=== PATIENT | female | born 1960 | race Caucasian/White ===

== ENCOUNTER → 2016-09-04 | Outpatient (CLI) | payer OTHER ==
--- NOTE | 2016-09-04 21:42 | CONS ---
DATE: 09/04/2016 CONSULTATION/NEW PATIENT EVALUATION HISTORY OF PRESENT ILLNESS/SLEEP-WAKE EVALUATION: A 56-year-old lady who has been evaluated in the sleep center for snoring and possible obstructive sleep apnea-hypopnea syndrome. SLEEP SCHEDULE: The patient's usual sleep schedule from around 10:00 p.m. until 5:00 a.m. FALLING ASLEEP: No problem falling asleep. She has TV set in bedroom and sometimes watches. DURING SLEEP: She usually sleeps on the side position. Sometimes wake up from sleep. The necessity to go to the bathroom with nocturia. She has loud snoring, hot flashes during sleep. DURING THE DAY/WAKE STATE: During the day, she may feel some day and sleepiness. [place] Sleepiness Scale is 7. She drives motorcycle and car. During the day, she drinks 1 cup of 8 ounces caffeinated beverages. No history of hypnagogic hallucinations, sleep paralysis or cataplexy. PAST MEDICAL HISTORY: Positive for recent hot flashes, history of carpal time syndrome. PAST SURGICAL HISTORY: Surgery for carpal tunnel syndrome on both arms. SOCIAL HISTORY: Smoking in the past; quit 14 years ago. Alcohol consumption occasionally. MEDICATIONS: Effexor taken for hot flashes. No history of depression. FAMILY HISTORY: Hypertension, heart problems, hyperlipidemia, arthritis, asthma, sinus headaches, acid reflux, snoring. PHYSICAL EXAMINATION: GENERAL: lady without distress. BP 140/83, HR 80, RR 16. Height 5 feet 3-1/2 inches. Weight 163. BMI 28.4. Neck 13-3/4 inches in circumference. Temperature 98.0. Oxygen saturation at room air 99%. HEENT: PERRLA, EOMI. Evaluation of oropharynx showed tongue protrudes midline. Extremely low position of soft palate. Some restriction of nasal breathing. NECK: Supple. No JVD. Thyroid is not palpable. LUNGS: Clear to percussion and to auscultation. Good air exchange. No wheezing or rhonchi. HEART: S1, S2 regular. No murmurs, gallops or rubs. ABDOMEN: Soft and nontender. Bowel sounds are present. No organomegaly appreciated. EXTREMITIES: No clubbing or cyanosis. SALES VICE PRESIDENT: Awake, alert, and oriented x3. Cranial nerves 2 to 7 intact. There is no fasciculation or atrophy noted. No focal deficits observed. IMPRESSION: 1. Snoring, extremely low position of soft palate, awakenings from sleep with nocturia, sometimes tiredness and sleepiness during the day, possible obstructive sleep apnea-hypopnea syndrome. 2. Menopause. 3. Hot flashes. 4. Status post surgery for carpal tunnel syndrome bilaterally. 5. History of smoking in the past. PLAN: 1. Polysomnography for evaluation of patient's breathing during sleep. 2. CPAP/BiPAP titration if sleep study confirms obstructive sleep apnea-hypopnea syndrome. 3. Preferable position during sleep on the side. 4. No driving if patient feels any sleepiness. Patient is aware of civil and criminal liability for unsafe driving. 5. I will see patient for follow-up visit to explain results of the testing and following plan. Thank you very much for referring this patient for consultation. Sincerely, Jordi Burkett MD, PhD, FAASM. Diplomat of [place] [employer], Sleep Medicine Board by [place] [employer] [place] [employer] Farm Worker of [facility] [place]
== END | disposition home or self-care (01) ==
LOC: SLEEP 15:27
PROVIDERS: ATTEND Internal Medicine
DX: G47.33 Obstructive sleep apnea (adult) (pediatric) (principal); N95.1 Menopausal and female climacteric states; Z98.890 Other specified postprocedural states; Z87.891 Personal history of nicotine dependence
CPT/HCPCS: 99211

== ENCOUNTER → 2017-04-23 | Outpatient (CLI) | payer OTHER ==
--- NOTE | 2017-04-23 18:44 | PN ---
PROGRESS NOTE DATE OF SERVICE: 04/23/2017 This patient is a 57-year-old lady who has been followed in the sleep center for treatment of obstructive sleep apnea-hypopnea syndrome. Recently she was started on treatment with CPAP, and I discussed results of her sleep studies with the patient in detail. Home sleep apnea test showed that patient has an apnea-hypopnea index of 15.1 with oxygen desaturation to 83%. During CPAP titration, respiration was under control with a pressure of 7 cm of water. Subsequently the patient received her CPAP unit, and she brought her unit today for the appointment. I checked her CPAP unit. CPAP pressure is 7 cm of water. RAMP is on automatic regimen. Patient used the equipment 27 out of 30 nights and 20 out of 30 nights for more than 4 hours. Average usage is 5.8 hours. Apnea/hypopnea index reading is around 2 for the last month. The patient reported that she has sweating and drooling while she is using her CPAP equipment. Heating of the tube and the humidifier is installed in automatic regimen. She is on no medications. Patient feels sometimes sleepiness during the day. [place] Sleepiness Scale is 10, but sometimes she sleeps only around 4 hours per night. PHYSICAL EXAM: Patient is in no distress. VITAL SIGNS: BP 143/70, HR 71, RR 16, height 5 feet 3 inches, weight 169.0, BMI 29.9, temperature 97.4, oxygen saturation on room air 99%. HEENT: PERRLA, EOMI. Evaluation of oropharynx showed tongue protrudes midline. Low position of soft palate. NECK: Supple. No JVD. Thyroid is not palpable. LUNGS: Clear to percussion and to auscultation. Good air exchange. No wheezing or rhonchi. HEART: S1, S2 with some irregularities. Slight systolic murmur. ABDOMEN: Soft and non-tender. Bowel sounds present. No organomegaly appreciated. EXTREMITIES: No clubbing or cyanosis. ACCOUNT SERVICES ASSOCIATE: Awake, alert and oriented x3. Cranial nerves 2 to 7 intact. There is no fasciculation or atrophy noted. No focal deficits observed. IMPRESSION: 1. Moderate obstructive sleep apnea-hypopnea syndrome, under control with CPAP at 7 cm of water. Patient demonstrated borderline compliance with treatment, benefitting from treatment. 2. Overweight, borderline to obesity; BMI 29.9. 3. Menopause hot flashes. 4. Status post surgical treatment of carpal tunnel syndrome bilaterally. 5. History of smoking in the past. Quit 15 years ago. 6. Some drooling while using CPAP equipment with a full-face mask. PLAN: 1. I explained to the patient how to adjust humidity and temperature in the tube. I changed humidity heater down to the level of 2, and I changed the temperature in the tube down. 2. I believe the patient will be able to use a nasal pillow mask, possibly with the nasal strips. We will try it. 3. Continue to use CPAP equipment every night for the whole night. 4. No driving if feeling any sleepiness. 5. Sleep hygiene with regular time in bed for 7-1/2 hours. Thank you very much for allowing me to participate in management of your patient. Sincerely, Jordi Burkett MD, PhD, FAASM Diplomat of [place] [employer] [place] [employer] Management Accountant of [facility] [place] MMODL / SHYANNN: [id number] /
== END ==
LOC: SLEEP 11:44
PROVIDERS: ATTEND Internal Medicine
DX: G47.33 Obstructive sleep apnea (adult) (pediatric) (principal); E66.3 Overweight; Z78.0 Asymptomatic menopausal state; Z68.29 Body mass index [BMI] 29.0-29.9, adult; Z98.890 Other specified postprocedural states; Z87.891 Personal history of nicotine dependence

== ENCOUNTER 2017-11-26 08:08 | Observation (INO) | payer OTHER ==
[2017-11-23 11:09] VITALS: BMI 28.1
[~2017-11-26 08:08] MED LIST: DEXAMETHASONE SOD PHOSPHATE 10 MG/ML 1 ML VIAL IV ONE; DEXAMETHASONE SOD PHOSPHATE 4 MG/ML 1 ML VIAL IV ONE; LACTATED RINGERS 1,000 ML IV SCH; LIDOCAINE 1% 20 ML VIAL (10MG/ML) FOR IV START INTRADERMA PRN; ONDANSETRON 4 MG/2 ML VIAL IVP ONE; SCOPOLAMINE 1.5MG/72HR PATCH TRANSDERM ONE; ceFAZolin IN SWFI 2 GM/20 ML SYRINGE IVP ONE
[2017-11-26] MEDS: OXYMETAZOLINE 0.05% NASL SPRAY 1 SPRAY BOTTLE NASAL ONE ×5 (09:07→09:29)
[2017-11-26] MEDS: FAMOTIDINE 20 MG/2 ML VIAL IV ONE ×2 (09:27→20:45)
[2017-11-26] MEDS: MELOXICAM 7.5 MG TAB PO ONE ×2 (09:53→17:38)
[2017-11-26] MEDS ORDERED: GLYCOPYRROLATE 0.2 MG/ML 2 ML VIAL ONE (10:12)
[2017-11-26] MEDS ORDERED: NEOSTIGMINE 1 MG/ML 10 ML VIAL ONE (10:12)
[2017-11-26] MEDS ORDERED: MIDAZOLAM 2 MG/2 ML VIAL ONE (10:12)
[2017-11-26] MEDS ORDERED: ROCURONIUM BROMIDE 10 MG/ML 10 ML VIAL IV ONE (10:12)
[2017-11-26] MEDS ORDERED: PROPOFOL 10 MG/ML 20 ML VIAL IV ONE (10:12)
[2017-11-26] MEDS ORDERED: DEXAMETHASONE SOD PHOS (MDV) 100 MG/10 ML VIAL ONE (10:12)
[2017-11-26] MEDS ORDERED: fentaNYL (PF) 50 MCG/ML 2 ML AMP ONE (10:12)
[2017-11-26] MEDS ORDERED: LIDOCAINE 1%-EPI 1:100,000 30 ML VIAL SQ ONE (10:35)
[2017-11-26] MEDS ORDERED: BUPIVACAINE (PF) 0.25% 30 ML VIAL SQ ONE (10:35)
[2017-11-26] MEDS ORDERED: BACITRACIN 500 UNIT/GM OINT 28.4 GM TUBE TOPICAL ONE (11:00)
[2017-11-26] MEDS ORDERED: LACTATED RINGERS 1,000 ML IV ONE (11:46)
--- NOTE | 2017-11-26 12:08 | P.OP ---
Date of Procedure: 11/26/17 Preoperative Diagnosis: Deviated nasal septum deviated nasal septum and bilateral hypertrophy of nasal turbinates Obstructive sleep apnea syndrome Tonsillar hypertrophy with obstruction Postoperative Diagnosis: Same Procedure(s) Performed: Septoplasty Bilateral outfracture compression and submucosal resection of the inferior turbinates Uvulopalatopharyngoplasty Tonsillectomy Anesthesia: TRAVIS Surgeon: Massimo Fowler Estimated Blood Loss (ml): 10 Pathology: other (sinonasal) Condition: stable (uvular sinonasal, soft palate,) Disposition: PACU Indications for Procedure: This patient presented to the office with obstructive sleep apnea syndrome the patient had an elevated respiratory disturbance index and was intolerant to CPAP. She also is a chronic snorer and has been awakening her . She's failed CPAP for respiratory disturbance index was 15. She is claustrophobic. Examination revealed deviated nasal septum and inferior turbinate hypertrophy with obstruction a redundant soft palate much tonsils the base of tongue was not problematic. Operative Findings: As above Description of Procedure: This patient was taken to the operative room and placed in the supine position. A general inhalation anesthetic was administered to the patient and subsequently intubated with a cuffed endotracheal tube by the department of anesthesia with a functioning IV line in place. The patient was monitored through the entire case by the department of anesthesia. Prep medication was administered Attention was paid to the nose where the septum and inferior turbinates were injected with lidocaine 1% with epinephrine 1 100,000. Approximately 10 minutes were allowed wait for full vasoconstrictive effects to take place. At this time, a caudal incision was made over the caudal portion of the left septum. This was made down to the mucoperichondrium were a mucoperichondrial flap was developed to the extent of visualization on the left. A crossover incision was made with for the mucoperichondrial flap development to the extent of visualization on the contralateral side. With use of several crosshatching incisions and removal of redundant strips of septal cartilage the septum was straightened and placed back in position. The septum was perfectly straight and the incision was closed with a 4 rapid Vicryl. A quilting stitch was used to reapproximate the septal flaps. The septum was sutured fixated to the vomer area and groove. In the incision was closed with 40 rapid Vicryl. Attention was then paid to the inferior turbinates which were entered anteriorly with the use of a microdebrider utilizing a 2 mm blade. We entered the inferior turbinates and we remove bone and submucosal elements from the inferior turbinates bilaterally. After submucosal resection was performed with removal of bone and submucosal elements ; the inferior turbinates were outfractured and compressed with use of a Dibbz nasal elevator. Excellent airway was obtained.. A septal splint was then placed and fixated. Attention was then paid to the mouth where a McIvor mouthgag was inserted into the patient's mouth with care to avoid any trauma to the lips, teeth, gums, or tongue. The mouth was opened and tongue was depressed and the soft palate was measured. The tonsils were grasped with an Allis forceps and brought medially bilaterally. A subcapsular dissection was performed utilizing an Evac-70 handpiece with an Arthrotec setting of 7. The tonsils were removed without incident bilaterally and the tonsillar fossae were inspected and bleeding was nonexistent and stopped spontaneously with Coblation. The uvula was extremely long and the soft palate was redundant. We removed the anterior face of the uvula and we remove the anterior inferior margin of the mucosa the soft palate. We sutured the posterior margin of the soft palate to the anterior portion of the soft palate with care to avoid any excessive soft palate resection. We measured the soft palate to prevent any velopharyngeal insufficiency. The soft palate looked excellent and after the uvulectomy and the lateral pharyngeal mucosa was removed in the usual fashion, the incision was closed with a 4 rapid Vicryl. Excellent approximation was obtained. Excellent results were obtained. The patient was taken to postanesthesia recovery in excellent condition The patient will follow up with me in one week as an outpatient.
[2017-11-26] MEDS ORDERED: PROMETHAZINE INJ 25 MG/ML 1 ML VIAL IM PRN (12:13)
[2017-11-26] MEDS ORDERED: METOCLOPRAMIDE 5 MG/ML 2 ML VIAL IVP ONE (12:13)
[2017-11-26] MEDS: fentaNYL (PF) 50 MCG/ML 2 ML AMP IV PRN ×4 (12:20→12:55)
[2017-11-26] MEDS ORDERED: oxyCODONE-APAP 5-325MG 1 EACH TAB PO PRN ×2 (12:21→13:09)
[2017-11-26] MEDS ORDERED: NALOXONE 0.4 MG/ML 1 ML VIAL IV PRN (12:53)
[2017-11-26] MEDS ORDERED: diphenhydrAMINE 50 MG/ML 1 ML VIAL IVP ONE (13:18)
[2017-11-26] MEDS ORDERED: hydrALAZINE HCL 20 MG/ML 1 ML VIAL IVP ONE (13:19)
[2017-11-26] MEDS ORDERED: METOPROLOL TARTRATE 5 MG/5 ML VIAL IVP ONE (13:45)
[2017-11-26] MEDS: HYDROmorphone PCA 5 MG/25 ML SYRINGE IV PRN (15:03)
[2017-11-26] MEDS: DEXTROSE 5%-LACTATED RINGERS 1,000 ML IV SCH (18:03)
[2017-11-26] MEDS: methylPREDNISolone SOD SUCCI 125 MG/2 ML VIAL IV SCH (18:03)
[2017-11-27] MEDS: THYROID, PORK 30 MG TAB PO SCH ×2 (00:34→07:45)
[2017-11-27] MEDS: methylPREDNISolone SOD SUCCI 125 MG/2 ML VIAL IV SCH ×4 (00:34→17:30)
[2017-11-27] MEDS: HYDROmorphone PCA 5 MG/25 ML SYRINGE IV PRN (01:04)
[2017-11-27] MEDS: DEXTROSE 5%-LACTATED RINGERS 1,000 ML IV SCH (04:36)
[2017-11-27 07:41] VITALS: RESP 16
[2017-11-27] MEDS ORDERED: PROGESTERONE MICRONIZED 200 MG PO SCH (09:00)
[2017-11-27 16:28] VITALS: BP 129/69; PULSE 77; TEMP 97.9
--- NOTE | 2017-11-27 17:29 | P.DS ---
Providers Date of admission: 11/26/17 22:27 Expected date of discharge: 11/27/17 Attending physician: Massimo Fowler Primary care physician: Stated None Hospital Course: This patient underwent sleep apnea surgery yesterday and has done well. Her pain is almost nonexistent this afternoon and she is anxious to go home. She is requesting an antianxiety medication because she is an anxious person. Has no complaints and is doing wonderfully. Procedures: Sleep apnea surgery Patient Condition at Discharge: Good Plan - Discharge Summary Discharge Rx Participant: Yes New Discharge Prescriptions: New Amoxicillin 500 mg PO Q8HR #300 ml Hydrocodone/Acetaminophen [[place] 5-325] 1 - 2 each PO Q6HR PRN #50 tab PRN Reason: Pain Lidocaine Viscous [Xylocaine Viscous 2%] 5 ml PO RT-Q1H PRN #300 ml PRN Reason: Pain Meloxicam [Mobic] 15 mg PO DAILY #14 tab predniSONE 20 mg PO DIRECTED #15 tab ALPRAZolam [Xanax] 1 - 2 mg PO TID PRN #60 tablet PRN Reason: Anxiety No Action Progesterone,Micronized [Prometrium] 200 mg PO DAILY [place]resser Thyroid 60mg 60 mg PO BID Iodine Plus 12.5 1 tab PO DAILY Dim 150 150 mg PO DAILY Bio Te Hormone Replacement 1 implant IM ONCE [id number] 1 cap PO DAILY Discharge Medication List [id number] 1 cap PO DAILY 11/23/17 [History] Bio Te Hormone Replacement 1 implant IM ONCE 11/23/17 [History] Dim 150 150 mg PO DAILY 11/23/17 [History] Iodine Plus 12.5 1 tab PO DAILY 11/23/17 [History] [place]er Thyroid 60mg 60 mg PO BID 11/23/17 [History] Progesterone,Micronized [Prometrium] 200 mg PO DAILY 11/23/17 [History] Amoxicillin 500 mg PO Q8HR #300 ml 11/26/17 [Rx] Hydrocodone/Acetaminophen [[place] 5-325] 1 - 2 each PO Q6HR PRN #50 tab 11/26/17 [Rx] Lidocaine Viscous [Xylocaine Viscous 2%] 5 ml PO RT-Q1H PRN #300 ml 11/26/17 [Rx ] Meloxicam [Mobic] 15 mg PO DAILY #14 tab 11/26/17 [Rx] predniSONE 20 mg PO DIRECTED #15 tab 11/26/17 [Rx] ALPRAZolam [Xanax] 1 - 2 mg PO TID PRN #60 tablet 11/27/17 [Rx] Follow up Appointment(s)/Referral(s): Massimo Fowler DO [Doctor of Osteopathic Medicine] - 11/30/17 7:00 am ( You have an appointment on Thursday, November 30, [address] Fowler to remove the nasal splints.) Patient Instructions/Handouts: *Sur[facility] - ([facility]) Tonsillectomy/ Adenoidectomy Post-Op Instructions, *[facility] - ([facility]) Uvulopalatopharyngoplasty Post-Op Instructions, *[facility] - ([facility]) Septoplasty Post-Op Instructions Activity/Diet/Wound Care/Special Instructions: Rest with head elevated and rest with head elevated Intranasal splints will be removed next Thursday No crunchy foods for 3 weeks Call if any problems should arise Discharge Disposition: HOME SELF-CARE
== END 2017-11-27 18:10 | disposition home or self-care (01) ==
LOC: OR 08:08 → 6PED 13:12 → OR 22:27
PROVIDERS: ADMIT Otolaryngology; ATTEND Otolaryngology
DX: G47.33 Obstructive sleep apnea (adult) (pediatric) (principal); J34.3 Hypertrophy of nasal turbinates; J34.2 Deviated nasal septum; J35.1 Hypertrophy of tonsils; F40.240 Claustrophobia; E66.9 Obesity, unspecified; H02.834 Dermatochalasis of left upper eyelid; H02.831 Dermatochalasis of right upper eyelid; Z79.899 Other long term (current) drug therapy; Z87.891 Personal history of nicotine dependence; Z82.5 Family history of asthma and other chronic lower respiratory diseases; Z82.49 Family history of ischemic heart disease and other diseases of the circulatory system; Z87.19 Personal history of other diseases of the digestive system; Z82.2 Family history of deafness and hearing loss; Z83.42 Family history of familial hypercholesterolemia; Z83.79 Family history of other diseases of the digestive system
CPT/HCPCS: 30930; 30520; 42145; 88304; 88300; 88302; G0378 ×2; J2250; J0360; J1200; J1100 ×2; J2710; J2930 ×2; J2405; J3010; J1170 ×2; J2704; J0690

== ENCOUNTER → 2017-12-02 | Outpatient (CLI) | payer OTHER ==
--- NOTE | 2017-12-08 10:25 | MM ---
Reason for exam: screening (asymptomatic). Last mammogram was performed 4 years and 5 months ago. History: Patient is postmenopausal. Physical Findings: A clinical breast exam by your physician is recommended on an annual basis and results should be correlated with mammographic findings. MG Screening Mammo w CAD Bilateral CC and MLO view(s) were taken. Prior study comparison: July 11, 2013, mammogram, performed at [facility]. June 23, 2012, mammogram, performed at [facility]. No suspicious abnormality. No significant changes when compared with prior studies. ASSESSMENT: Negative, BI-RAD 1 RECOMMENDATION: Routine screening mammogram of both breasts in 1 year.
== END | disposition home or self-care (01) ==
LOC: RADMAMWWP 07:45
PROVIDERS: ATTEND Obstetrics & Gynecology
DX: Z12.31 Encounter for screening mammogram for malignant neoplasm of breast (principal)
CPT/HCPCS: 77067

== ENCOUNTER → 2020-01-03 | Outpatient (CLI) | payer OTHER ==
--- NOTE | 2020-01-03 09:17 | XR ---
EXAMINATION TYPE: XR chest 2V DATE OF EXAM: 01/03/2020 COMPARISON: NONE HISTORY: History of tobacco use with chronic cough for one month. TECHNIQUE: Frontal and lateral views of the chest are obtained. FINDINGS: There is 1.1 cm hypodense nodule right lower lung on frontal view less well seen on lateral view presumed calcified granuloma. There is no focal air space opacity, pleural effusion, or pneumot horax seen. The cardiac silhouette size is within normal limits. The osseous structures are intact . IMPRESSION: No acute cardiopulmonary process.
== END | disposition home or self-care (01) ==
LOC: RADXRYALE 08:47
PROVIDERS: ATTEND Internal Medicine
DX: R05 Cough (principal)
CPT/HCPCS: 71046

== ENCOUNTER → 2020-01-11 | Outpatient (CLI) | payer OTHER | END | disposition home or self-care (01) | LOC: LABWHC1 07:31 | PROVIDERS: ATTEND Internal Medicine | DX: R05 Cough (principal) ==

== ENCOUNTER → 2023-06-23 | Outpatient (CLI) | payer OTHER ==
--- NOTE | 2023-06-23 17:26 | XR ---
EXAMINATION TYPE: XR chest 2V DATE OF EXAM: 06/23/2023 COMPARISON: 01/03/2020 HISTORY: 63-year-old female [id number], other chest pain. TECHNIQUE: Frontal and lateral views FINDINGS: The cardiomediastinal silhouette, aorta, and pulmonary vasculature are within normal limits. Redemons trated high density nodule at the right base, unchanged from 2020. Findings suggest a calcified granu cayla. Increased retrosternal clear space. Otherwise, lungs and pleural spaces are clear. IMPRESSION: Correlate for underlying COPD. Suspect a calcified granuloma at the right base. No acute process seen .
== END | disposition home or self-care (01) ==
LOC: RADXRYALE 16:40
PROVIDERS: ATTEND Family Medicine
DX: R07.89 Other chest pain (principal)
CPT/HCPCS: 71046

== ENCOUNTER → 2023-07-06 | Outpatient (CLI) | payer OTHER ==
--- NOTE | 2023-07-06 11:45 | CA ---
Exercise Stress Test Report Name: Shannon Sifuentes Exam Date: 07/06/2023 10:04 Exam Location: [place] Stress Ht (in): 63 Wt (lb): 178 BSA: 1.84 Ordering Phys: Eben Pritchard DO Referring Phys: FITO,, Technologist: Yogi Gonzalez Age: 63 Gender: F : 1960 Procedure CPT: Indications: R07.89 other chest pain ICD-10 Codes: Patient History: PALP, FAMILY HX, CP Medications: PROGESTRIN, THYROID MED Meds past 24 hrs: Pretest Chest Pain: STRESS TEST Misael Protocol Exercise Duration (min:sec): 09:[address] Depressions (mm): Angina Score: Ramon Score: Resting HR (bpm): 65 Peak HR (bpm): 157 Resting BP (mmHg): 158 / 98 Peak BP (mmHg): 213 / 59 MPHR: 159 Target HR: 135 % MPHR: 99 METS: 11.5 Total Dose: Peak Dose: Atropine: Double Product: 10553 BP Response: Stress Termination: Stress Symptoms: No chest pain or symptoms Stress Summary: The patient's target heart rate was achieved ECG ANALYSIS Resting ECG: Normal sinus rhythm normal axis normal intervals Stress EC mm ST segment depression CONCLUSIONS Good exercise tolerance Abnormal stress test by EKG criteria Dr. Markell Moncada MD (Electronically Signed) Final Date: 06 July 2023 11:44
== END | disposition home or self-care (01) ==
LOC: RADNMMAIN 08:18
PROVIDERS: ATTEND Family Medicine
DX: R07.89 Other chest pain (principal); R94.39 Abnormal result of other cardiovascular function study; Z82.49 Family history of ischemic heart disease and other diseases of the circulatory system
CPT/HCPCS: 93017